=== PATIENT | female | born 1940 | race Caucasian/White ===

== ENCOUNTER 2016-12-04 09:41 | Emergency (ER) | payer MEDICARE, BC ==
[~2016-12-04] VITALS: Ht 161.3 cm; Wt 72.6 kg
[2016-12-04] MEDS ORDERED: WELLBUTRIN XL150 MG PO (17:03)
[2016-12-04] MEDS ORDERED: CALCIUM 600 +1 EAC3 PO (17:04)
[2016-12-04] MEDS ORDERED: ZYPREXA10 MG PO (17:05)
[2017-03-24] MEDS ORDERED: VITAMIN B-12500 MCG PO (19:20)
[2017-03-24] MEDS ORDERED: TESSALON PERLE100 M1 PO (19:22)
[2017-03-24] MEDS ORDERED: BUPROPION HCL75 MG PO (19:23)
[2017-03-24] MEDS ORDERED: VITAMIN D31000 UNIT PO (19:24)
[2017-03-24] MEDS ORDERED: MAGNESIUM OXID400 MG PO (19:27)
[2017-03-24] MEDS ORDERED: VITAMIN B-6100 MG PO (19:28)
[2017-03-24] MEDS ORDERED: VITAMIN E400 UNI4 PO (19:29)
[2017-03-24] MEDS ORDERED: ZYRTEC10 MG PO (19:29)
[2017-03-24] MEDS ORDERED: LINZESS145 MCG PO (19:29)
[2017-03-24] MEDS ORDERED: MIRALAX17 GM PO (19:30)
[2017-03-24] MEDS ORDERED: PRILOSEC20 MG PO (19:30)
[2017-03-25] MEDS ORDERED: ZOFRAN ODT4 MG PO (16:38)
[2017-03-25] MEDS ORDERED: VITAMIN B-6100 MG PO (16:39)
[2017-03-25] MEDS ORDERED: NORCO 325-5 MG1 TAB PO (16:56)
[2017-03-25] MEDS ORDERED: MS CONTIN15 MG PO (16:57)
== END 2016-12-04 11:23 | disposition short-term general hospital (02) ==
LOC: ER 09:41
PROC: 0PSJXZZ Reposition Left Radius, External Approach (ICD-10-PCS; principal; 2016-12-04)
PROC: 0PSLXZZ Reposition Left Ulna, External Approach (ICD-10-PCS; 2016-12-04)
DX: S52.532A Colles' fracture of left radius, initial encounter for closed fracture (principal); S52.612A Displaced fracture of left ulna styloid process, initial encounter for closed fracture; S00.03XA Contusion of scalp, initial encounter; M81.0 Age-related osteoporosis without current pathological fracture; F30.2 Manic episode, severe with psychotic symptoms; Z98.890 Other specified postprocedural states; Z88.5 Allergy status to narcotic agent; Z88.0 Allergy status to penicillin; Z88.6 Allergy status to analgesic agent; Z79.899 Other long term (current) drug therapy; Z87.891 Personal history of nicotine dependence; W01.0XXA Fall on same level from slipping, tripping and stumbling without subsequent striking against object, initial encounter

== ENCOUNTER 2016-12-07 12:15 | Emergency (ER) | payer MEDICARE, BC ==
[~2016-12-07] VITALS: Ht 160 cm; Wt 72.6 kg
[~2016-12-07 12:15] MED LIST: CALCIUM 600 +1 EAC3 PO; WELLBUTRIN XL150 MG PO; ZYPREXA10 MG PO
[2017-03-24] MEDS ORDERED: VITAMIN B-12500 MCG PO (19:20)
[2017-03-24] MEDS ORDERED: TESSALON PERLE100 M1 PO (19:22)
[2017-03-24] MEDS ORDERED: BUPROPION HCL75 MG PO (19:23)
[2017-03-24] MEDS ORDERED: VITAMIN D31000 UNIT PO (19:24)
[2017-03-24] MEDS ORDERED: MAGNESIUM OXID400 MG PO (19:27)
[2017-03-24] MEDS ORDERED: VITAMIN B-6100 MG PO (19:28)
[2017-03-24] MEDS ORDERED: LINZESS145 MCG PO (19:29)
[2017-03-24] MEDS ORDERED: ZYRTEC10 MG PO (19:29)
[2017-03-24] MEDS ORDERED: VITAMIN E400 UNI4 PO (19:29)
[2017-03-24] MEDS ORDERED: PRILOSEC20 MG PO (19:30)
[2017-03-24] MEDS ORDERED: MIRALAX17 GM PO (19:30)
[2017-03-25] MEDS ORDERED: ZOFRAN ODT4 MG PO (16:38)
[2017-03-25] MEDS ORDERED: VITAMIN B-6100 MG PO (16:39)
[2017-03-25] MEDS ORDERED: NORCO 325-5 MG1 TAB PO (16:56)
[2017-03-25] MEDS ORDERED: MS CONTIN15 MG PO (16:57)
== END 2016-12-07 13:00 | disposition short-term general hospital (02) ==
LOC: ER 12:15
DX: S52.502D Unspecified fracture of the lower end of left radius, subsequent encounter for closed fracture with routine healing (principal); Z88.5 Allergy status to narcotic agent; X58.XXXD Exposure to other specified factors, subsequent encounter

== ENCOUNTER → 2017-03-02 | Outpatient (CLI) | payer MEDICARE, BC ==
[~2017-03-02] MED LIST changes: +BUPROPION HCL75 MG PO; +LINZESS145 MCG PO; +MAGNESIUM OXID400 MG PO; +MIRALAX17 GM PO; +MS CONTIN15 MG PO; +NORCO 325-5 MG1 TAB PO; +PRILOSEC20 MG PO; +TESSALON PERLE100 M1 PO; +VITAMIN B-12500 MCG PO; +VITAMIN B-6100 MG PO; +VITAMIN D31000 UNIT PO; +VITAMIN E400 UNI4 PO; +ZOFRAN ODT4 MG PO; +ZYRTEC10 MG PO
== END | disposition short-term general hospital (02) ==
LOC: CLSURG 08:20
DX: K80.20 Calculus of gallbladder without cholecystitis without obstruction (principal)

== ENCOUNTER 2017-03-09 08:12 | Day surgery (SDC) | payer MEDICARE, BC ==
[~2017-03-09] VITALS: Ht 162.6 cm; Wt 65.3 kg
[~2017-03-09 08:12] MED LIST changes: -BUPROPION HCL75 MG PO; -LINZESS145 MCG PO; -MAGNESIUM OXID400 MG PO; -MIRALAX17 GM PO; -MS CONTIN15 MG PO; -NORCO 325-5 MG1 TAB PO; -PRILOSEC20 MG PO; -TESSALON PERLE100 M1 PO; -VITAMIN B-12500 MCG PO; -VITAMIN B-6100 MG PO; -VITAMIN D31000 UNIT PO; -VITAMIN E400 UNI4 PO; -ZOFRAN ODT4 MG PO; -ZYRTEC10 MG PO
[2017-03-24] MEDS ORDERED: VITAMIN B-12500 MCG PO (19:20)
[2017-03-24] MEDS ORDERED: TESSALON PERLE100 M1 PO (19:22)
[2017-03-24] MEDS ORDERED: BUPROPION HCL75 MG PO (19:23)
[2017-03-24] MEDS ORDERED: VITAMIN D31000 UNIT PO (19:24)
[2017-03-24] MEDS ORDERED: MAGNESIUM OXID400 MG PO (19:27)
[2017-03-24] MEDS ORDERED: VITAMIN B-6100 MG PO (19:28)
[2017-03-24] MEDS ORDERED: LINZESS145 MCG PO (19:29)
[2017-03-24] MEDS ORDERED: ZYRTEC10 MG PO (19:29)
[2017-03-24] MEDS ORDERED: VITAMIN E400 UNI4 PO (19:29)
[2017-03-24] MEDS ORDERED: PRILOSEC20 MG PO (19:30)
[2017-03-24] MEDS ORDERED: MIRALAX17 GM PO (19:30)
[2017-03-25] MEDS ORDERED: ZOFRAN ODT4 MG PO (16:38)
[2017-03-25] MEDS ORDERED: VITAMIN B-6100 MG PO (16:39)
[2017-03-25] MEDS ORDERED: NORCO 325-5 MG1 TAB PO (16:56)
[2017-03-25] MEDS ORDERED: MS CONTIN15 MG PO (16:57)
== END 2017-03-09 13:45 | disposition short-term general hospital (02) ==
LOC: SURGOP 08:12
PROC: 0FT44ZZ Resection of Gallbladder, Percutaneous Endoscopic Approach (ICD-10-PCS; principal; 2017-03-09)
PROC: 0WQF4ZZ Repair Abdominal Wall, Percutaneous Endoscopic Approach (ICD-10-PCS; 2017-03-09)
DX: K80.20 Calculus of gallbladder without cholecystitis without obstruction (principal); K82.8 Other specified diseases of gallbladder; L92.8 Other granulomatous disorders of the skin and subcutaneous tissue; K42.9 Umbilical hernia without obstruction or gangrene; M19.90 Unspecified osteoarthritis, unspecified site; M81.0 Age-related osteoporosis without current pathological fracture; F32.9 Major depressive disorder, single episode, unspecified; Z87.891 Personal history of nicotine dependence; Z88.0 Allergy status to penicillin; Z88.5 Allergy status to narcotic agent; Z88.6 Allergy status to analgesic agent; Z88.8 Allergy status to other drugs, medicaments and biological substances; Z79.899 Other long term (current) drug therapy; Z90.710 Acquired absence of both cervix and uterus; Z98.890 Other specified postprocedural states
CPT/HCPCS: J0131; J1956; J2405; J2710; J3010

== ENCOUNTER → 2017-03-16 | Outpatient (CLI) | payer MEDICARE, BC ==
[~2017-03-16] MED LIST changes: +BUPROPION HCL75 MG PO; +LINZESS145 MCG PO; +MAGNESIUM OXID400 MG PO; +MIRALAX17 GM PO; +MS CONTIN15 MG PO; +NORCO 325-5 MG1 TAB PO; +PRILOSEC20 MG PO; +TESSALON PERLE100 M1 PO; +VITAMIN B-12500 MCG PO; +VITAMIN B-6100 MG PO; +VITAMIN D31000 UNIT PO; +VITAMIN E400 UNI4 PO; +ZOFRAN ODT4 MG PO; +ZYRTEC10 MG PO
== END | disposition short-term general hospital (02) ==
LOC: CLSURG 07:56
DX: Z48.815 Encounter for surgical aftercare following surgery on the digestive system (principal); Z90.49 Acquired absence of other specified parts of digestive tract; Z87.19 Personal history of other diseases of the digestive system